=== PATIENT | male | born 2005 | race Caucasian/White ===

== ENCOUNTER 2024-05-28 21:19 | Inpatient (IN) ==
--- NOTE | 2024-05-28 23:04 | Ultrasound Report ---
Exam(s): US SCROTAL EXAM: US Scrotum CLINICAL HISTORY: Reason for exam: Testicle pain. TECHNIQUE: Real-time ultrasound of the scrotum with color Doppler and image documentation. COMPARISON: No relevant prior studies available. FINDINGS: Right testicle: The right testicle measured 4.3 x 2.4 x 2.4 cm.. There appears to be diminished flow within the right testicle. Left testicle: The left testicle measured 5.3 x 3.3 x 2.3 cm. It demonstrated vascular flow. Epididymides: Unremarkable. Scrotum: There is a very large right hydrocele. There is a complex lesion noted superior to the right testicle. IMPRESSION: There is a very large right hydrocele. There is a complex lesion superior to the right testicle which may represent a hernia. There is diminished flow in the right testicle. Cannot exclude an element of torsion. Communications: Call Doctor Torsion, ovarian or testicular Electronically signed by: Dutch Campoverde MD 05/28/24 23:03 PM
--- NOTE | 2024-05-28 23:44 | Emergency Department Note ---
History of Present Illness General Chief complaint: Testicular Pain Stated complaint: TESTICULAR PAIN RT SIDE, ABD PAIN Time Seen by Provider: 05/28/24 22:54 History of Present Illness Maximum Pain Intensity: 4 This is a 18-year-old male presenting to the emergency department through triage for evaluation of right testicle pain for the past 1 day. Patient states his pain has been waxing and waning, and was more severe yesterday. He currently is rated a 4/10. He has been able to urinate, but has not had a bowel movement. Patient is usually healthy without chronic medical disease. 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 No injury or trauma. No urethral drainage or discharge, and no concern for STD. Home Medications Medication Instructions Recorded Confirmed Type oxycodone 5 mg tablet 5 - 10 mg (1 - 2 x 5 mg) PO 05/29/24 Rx .[id number] PRN pain #15 tabs Allergies Allergy/AdvReac Type Severity Reaction Status Date / Time No Known Allergies Allergy Unverified 05/29/24 02:58 Past Med/Surg History Problem List (Updated 05/29/24 @ 16:22 by Mathew Costa PA-C) S/P inguinal hernia repair Inguinal hernia (Acute) Small bowel obstruction (Acute) Testicular pain (Acute) Medical History No chronic diseases present Surgical History No significant past surgical history Social History Smoking Status: Never smoker Hx Alcohol Use: No Hx Substance Use: No Preferred Language: Estonian Communication Ability: Effective Health Science Specialist Required: No Beliefs That Will Affect Care: None Current Living Situation: Family Other Information That Helps Us Care for You: No Feels Safe at Home: Yes Safety Concerns: Feels Safe At This Time Review of Systems A total of 10 systems reviewed and were otherwise negative Physical Exam Vital Signs Vital Signs - 24 hr 05/28/24 21:28 05/28/24 23:33 05/29/24 01:13 Temperature 36.6 C Temperature Source Temporal Artery Scan Pulse Rate 111 H Pulse Rate [Apical] 90 74 Pulse Rhythm [Apical] Regular Respiratory Rate 18 16 16 Respiratory Effort / Characteristics Non-Labored Spontaneous Non-Labored Spontaneous Non-Labored Spontaneous Respiratory Depth Normal Normal Normal Respiratory Pattern Regular Regular Regular Blood Pressure 167/88 H Blood Pressure [Right Arm] 162/94 H 136/77 Blood Pressure Mean 114 Blood Pressure Mean [Right Arm] 116 96 Blood Pressure Position Sitting Blood Pressure Position [Right Arm] Lying Semi-fowlers Pulse Oximetry 94 97 94 Oxygen Delivery Method Room Air Room Air Room Air Sepsis Recent Fever Within 48 Hours No Sepsis New/Unexplained Change in Mental Status N/A Sepsis Action Taken by Nursing No Action Required 05/29/24 03:05 Temperature Temperature Source Pulse Rate Pulse Rate [Apical] 70 Pulse Rhythm [Apical] Respiratory Rate 16 Respiratory Effort / Characteristics Non-Labored Spontaneous Respiratory Depth Normal Respiratory Pattern Regular Blood Pressure Blood Pressure [Right Arm] 152/91 H Blood Pressure Mean Blood Pressure Mean [Right Arm] 111 Blood Pressure Position Blood Pressure Position [Right Arm] Pulse Oximetry 95 Oxygen Delivery Method Room Air Sepsis Recent Fever Within 48 Hours Sepsis New/Unexplained Change in Mental Status Sepsis Action Taken by Nursing VITALS: Vitals are noted on the nurse's note and reviewed by myself. Vital signs stable. GENERAL: Well-developed, well-nourished, white male, who moderately uncomfortable appearing but overall pleasant HEAD: Normocephalic atraumatic. EARS: External ear normal. External auditory canals clear, tympanic membranes pearly soni without erythema or effusion bilaterally. HEART: Regular rate and rhythm without murmurs gallops or rubs. LUNGS: Clear to auscultation bilaterally without wheezes, rales or rhonchi. No retractions or accessory muscle use. ABDOMEN: Positive normal bowel sounds x 4. Soft, nontender, without masses or organomegaly. No guarding or rebound tenderness. : Notable right-sided hernia on exam. Right scrotal sac is enlarged when compared to the left side. Testicle is tender on the right essentially inferior and posteriorly. No urethral drainage or discharge. MUSCULOSKELETAL: No muscle atrophy, erythema, or edema noted. Full range of motion in all extremities. Course Administered Medications Discontinued Medications Bupivacaine HCl/Epinephrine Bitart (Bupivacaine/Epinephrine 0.25% 1:200,000 30 Ml Vial) Confirm Administered Dose 30 ml .ROUTE .Qonf-Asl Analytical ONE Stop: 05/29/24 03:33 Last Admin: 05/29/24 05:08 Dose: 30 ml Documented By: [id number] Sodium Chloride (Nss) 1,000 mls @ 999 mls/hr IV .Q1H1M ONE Stop: 05/29/24 00:38 Last Infusion: 05/29/24 00:50 Dose: Infused Documented By: Admin: 05/28/24 23:49 Dose: 999 mls/hr Documented By: ALLEY Piperacillin Sod/Tazobactam Sod (Zosyn) 4.5 gm in 100 mls @ 200 mls/hr IV NOW ONE; Protocol Stop: 05/29/24 03:24 Last Infusion: 05/29/24 07:12 Dose: Infused Documented By: Admin: 05/29/24 03:01 Dose: 200 mls/hr Documented By: ALLEY Sodium Chloride (Nss) 1,000 mls @ 125 mls/hr IV .Q8H KEILY Stop: 05/30/24 02:59 Last Admin: 05/29/24 11:38 Dose: Not Given Documented By: Infusion: 05/29/24 11:37 Dose: Infused Documented By: Admin: 05/29/24 03:01 Dose: 125 mls/hr Documented By: ALLEY Ioversol (Optiray 320 100ml) 100 ml IV ONCE ONE Stop: 05/29/24 01:47 Last Admin: 05/29/24 01:47 Dose: 93 ml Documented By: CORINA Morphine Sulfate (Morphine Sulfate 2 Mg/Ml Carp) 2 mg IV Q30M PRN PRN Reason: Pain Stop: 06/11/24 23:34 Last Admin: 05/28/24 23:49 Dose: 2 mg Documented By: ALLEY Ondansetron HCl (Ondansetron Inj 2 Mg/Ml 2 Ml Vial) 4 mg IV NOW STA Stop: 05/28/24 23:36 Last Admin: 05/28/24 23:49 Dose: 4 mg Documented By: ALLEY Oxycodone HCl (Oxycodone Hcl Ir 5 Mg Tab (Immediate Release)) 5 mg PO Q4H PRN PRN Reason: Moderate Pain (Scale 4, 5, 6) Stop: 06/12/24 11:22 Last Admin: 05/29/24 12:30 Dose: 5 mg Documented By: MARKY Piperacillin Sod/Tazobactam Sod (Piperacillin/Tazo 4.5 Gm/100ml) Confirm Administered Dose 4.5 gm IV .[place] ONE Stop: 05/29/24 03:00 Last Admin: 05/29/24 03:01 Dose: Not Given Documented By: ALLEY Medical Decision Making Differential Diagnosis Differential diagnosis: Etiologies such as shingles, pyelonephritis/UTI, renal colic, appendicitis, diverticulitis, mesenteric ischemia, torsion, aortic pathology, infections, inflammatory bowel disease, bowel obstruction, PUD, biliary pathology, as well as others were entertained. Laboratory Data 05/29/24 06:58 05/29/24 06:58 Lab Results 05/28/24 05/29/24 05/29/24 Range/Units 23:42 00:43 03:11 WBC 19.83 H (4.8-10.8) K/ul RBC 5.89 (4.70-6.10) M/uL Hgb 17.3 (14.0-18.0) g/dl Hct 47.4 (42.0-52.0) % MCV 80.5 (80.0-100.0) fL MCH 29.4 (25.0-34.0) pg MCHC 36.5 H (32.0-36.0) g/dL RDW Std Deviation 34.5 L (36.4-46.3) fL RDW Coeff of [place] 11.9 (11.5-14.5) % Plt Count 384 (130-400) K/uL MPV 9.7 (9.4-12.4) fL Immature Gran % (Auto) 0.5 % Neut % (Auto) 85.4 % Lymph % (Auto) 7.6 % [place] % (Auto) 6.1 % Eos % (Auto) 0.2 % Baso % (Auto) 0.2 % Neut # (Auto) 16.96 H (1.40-6.50) K/uL Lymph # (Auto) 1.50 (1.20-3.40) K/uL [place] # (Auto) 1.21 H (0.11-0.59) K/uL Eos # (Auto) 0.03 (0.00-0.50) K/uL Baso # (Auto) 0.04 (0.00-0.20) K/uL Immature Gran # (Auto) 0.09 (0.01-0.20) K/uL PT 11.3 (9.0-12.0) Seconds INR 1.0 (0.9-1.1) APTT 30 (21-31) Seconds PTT Ratio 1.1 Sodium 134 L (136-145) mmol/L Potassium 4.4 (3.5-5.1) mmol/L Chloride 94 L (98-107) mmol/L Carbon Dioxide 26 (21-32) mmol/L Anion Gap 14 H (3-11) BUN 17 (6-23) mg/dl Creatinine 0.96 (0.6-1.4) mg/dl Est Cr Clr Drug Dosing 113.2 ml/min eGFR 116.77 BUN/Creatinine Ratio 17.7 (10-20) Glucose 111 H (70-99(Fasting)) mg/dl Lactate 1.0 (0.4-2.0) mmol/L Calcium 10.3 (8.6-10.3) mg/dl Total Bilirubin 0.6 (0.2-1.0) mg/dl AST 21 (13-39) U/L ALT 24 (7-52) U/L Alkaline Phosphatase 73 (34-104) U/L Total Protein 8.0 (6.0-8.3) gm/dl Albumin 5.0 (3.4-5.0) gm/dl Globulin 3.0 (2.5-4.0) gm/dl Albumin/Globulin Ratio 1.7 (0.9-2) Urine Color Yellow Urine Appearance Clear (Clear) Urine pH 6.0 (4.5-7.5) Ur Specific [place] > 1.045 H (1.000-1.030) Urine Protein Trace H (Negative) Urine Glucose (UA) Negative (Negative) Urine Ketones 2+ H (Negative) Urine Blood Negative (Negative) Urine Nitrite Negative (Negative) Urine Bilirubin Negative (Negative) Urine Urobilinogen Negative (Negative) Ur Leukocyte Esterase Negative (Negative) Urine WBC (Auto) 0-5 (0-5) /hpf Urine RBC (Auto) 0-2 (0-2) /hpf U Hyaline Cast (Auto) 0-2 (0-2) /lpf U Epithel Cells (Auto) 0-2 (0-2) /hpf Urine Bacteria (Auto) None Seen (None Seen) Imaging Data Radiologist's Impression: Scrotum Ultrasound 05/28/24 21:33 CR Exam(s): US SCROTAL EXAM: US Scrotum CLINICAL HISTORY: Reason for exam: Testicle pain. TECHNIQUE: Real-time ultrasound of the scrotum with color Doppler and image documentation. COMPARISON: No relevant prior studies available. FINDINGS: Right testicle: The right testicle measured 4.3 x 2.4 x 2.4 cm.. There appears to be diminished flow within the right testicle. Left testicle: The left testicle measured 5.3 x 3.3 x 2.3 cm. It demonstrated vascular flow. Epididymides: Unremarkable. Scrotum: There is a very large right hydrocele. There is a complex lesion noted superior to the right testicle. IMPRESSION: There is a very large right hydrocele. There is a complex lesion superior to the right testicle which may represent a hernia. There is diminished flow in the right testicle. Cannot exclude an element of torsion. Communications: Call Doctor Torsion, ovarian or testicular Electronically signed by: Dutch Campoverde MD 05/28/24 23:03 PM [facility] Narrative Physical exam and history were performed. Nursing notes, EMR, and Medication List were personally reviewed. No social concerns were identified as barriers to patients care. Patient appears to have pain in his right testicle bringing him to the ER. Symptoms began yesterday and have had some colic to them. Patient was seen during a period of very high ER volume and acuity with extended wait times. Nursing protocol order have been performed and some of these are available for my review at the time of patient encounter. Ultrasound was performed and reviewed by myself and radiology. Ultrasound does show the hernia, which was expected. Patient also appears to have a large right hydrocele. There is also is diminished flow to the right testicle, and torsion is certainly within the differential. Case was discussed with the on-call urology team, and the patient was evaluated at bedside by Saul Ramirez PA-C. Urology, Dr. Gaytan, was able to review images remotely, and feels that the diminished flow is likely from the large right-sided hernia, and not from torsion. Acute urologic surgical intervention is not felt to be necessary. On reevaluation additional history was gathered. Patient has not had a bowel movement in a few days, and is not passing gas. He has not eaten anything in about 36 hours due to the level of nausea. Certainly bowel containing hernia is within the differential, and Saul Ramirez did attempt bedside reduction of the hernia without success. Because of this IV access was established and labs were obtained. Patient was hydrated normal saline and given IV morphine and IV Zofran for comfort. He was sent to CT scan for imaging of his abdomen and pelvis with IV and oral contrast. Patient remained in stable condition until the time of shift change. Case was discussed with my colleague, ANTOINETTE Collins, who will assume care at this time pending CT results. Please see Mr. Zapien's dictation for results, plan, and disposition. The chart was completed utilizing [employer] Speech Voice Recognition Software. Grammatical errors, random word insertions, pronoun errors, and incomplete sentences are an occasional consequence of this system due to software limitations, ambient noise, and hardware issues. Any formal questions or concerns about the content, text, or information contained within the body of this dictation should be directly addressed to the provider for clarification. Impression & Plan Inguinal hernia, Testicular pain, Small bowel obstruction Discharge Plan Visit Data Chief Complaint: Testicular Pain Stated Complaint: TESTICULAR PAIN RT SIDE, ABD PAIN ED Provider: Angela Rae ED Midlevel Provider: Whitney Zapien Discharge Problem: Inguinal hernia, Testicular pain, Small bowel obstruction Patient Disposition: Admitted As Inpatient Discharge Instructions Interventions: ED Discharge Assessment Last Done: 05/29/24 03:18
--- NOTE | 2024-05-28 23:48 | Urology Consultation ---
Date of Consultation May 28, 2024 Assessment & Plan (1) Testicular pain: I evaluated the patient in room D4 in the emergency department. I was asked to see the patient at approximately 11:07 PM I reported the bedside within 5 minutes. I reviewed the ultrasound and clinical presentation with my attending physician, Dr. Gaytan of [facility] physician group urology Although the patient may have some diminished flow to the right testicle the findings on ultrasound as well as the patient's clinical presentation did not appear consistent with testicular torsion Patient is noted to have findings consistent with a right inguinal hernia. If the patient has a significant size hernia this could compress the cord like structures in the scrotum resulting in the diminished blood flow seen on ultrasound. No acute urologic intervention is warranted at this time I did discuss the above with the treating clinician the emergency department, and due to the right inguinal hernia the patient has plans are in place for the patient undergo a CT scan of the abdomen pelvis for further evaluation. Additional recommendations will be forthcoming based on his pending studies, and if it is felt intervention is required for patient's inguinal hernia this will be referred to general surgery. History of Present Illness Reason for Consultation: Testicular pain History of Present Illness This is a 18-year-old male who presented to the emergency department secondary to right testicular pain. Patient says that the pain began the morning of 05/27/2024. Patient says that the pain is primarily in his right testicle but he also reports some pain in his lower abdomen. He does state that he had a significant bout of nausea and vomiting when the pain began. He says he did not take his temperature but he felt feverish. Patient notes that he has not had a bowel movement in approximately 2-1/2 days (he does note that he usually moves his bowels daily basis) and he has not been passing any flatus since his symptoms began. He denies any difficulty urinating. 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 Since arrival to the emergency department the patient had a testicular ultrasound performed. The interpreting radiologist noted that there was a very large right hydrocele and a complex lesion superior to the right testicle potentially representing a hernia. They noted that the patient had diminished blood flow to the right testicle Concerning past medical history he denies any medical problems Concerning past surgical history he denies any surgical problems Concerning social history does not smoke Concerning family history he does not have any chronic health conditions around his family Patient History Medical History No chronic diseases present Surgical History No significant past surgical history Social History Smoking Status: Never smoker Feels Safe at Home: Yes Review of Systems Review of Systems: All systems reviewed & are unremarkable except as noted in HPI & below Physical Exam Constitutional: WD/WN, vitals as above Eyes: no conjunctival abnormality ENMT: Ears: no hearing impairment and no external ear abnormality Mouth: no oropharynx abnormality Neck: trachea midline Respiratory: normal respiratory effort; no respiratory distress and no labored breathing Cardiovascular: Rate/Rhythm: regular rate and regular rhythm Gastrointestinal (Abdomen): Abdomen is soft and nondistended. Patient did have some slight tenderness to palpation in the lower abdomen without rebound tenderness or guarding. Patient had a palpable masslike structure in the right groin consistent with a inguinal hernia. I was unable to reduce this mass. There is no overlying skin changes. Musculoskeletal: No gross orthopedic abnormalities in the extremities Skin: no rashes Neurologic: moves all extremities Psychiatric: Orientation: alert and oriented x 3 Affect: + flat affect Genitourinary: With a nurse corrections caseworker present I examined the patient's genitals. Patient had a noncircumcised penis without any noted abnormalities. Patient's left testes was nontender to palpation. I also do not appreciate any masses on the left testicle. The patient's right testicle/hemiscrotum appear to be swollen compared to the left. There is slightly painful to palpation. As noted in the abdominal portion of this exam I was able to appreciate findings consistent with an inguinal hernia I was unable to reduce this. Results & Data Vital Signs (Past 12 Hours) Vital Signs Temp Pulse Pulse Resp BP BP Pulse Ox 05/28/24 23:33 90 16 162/94 H 97 05/28/24 21:28 36.6 C 111 H 18 167/88 H 94 O2 Del Method 05/28/24 23:33 Room Air 05/28/24 21:28 Room Air PG Care Time/CCT Total # of Minutes Spent Total Time Spent with Patient: Total time spent is greater than 50% in coordination of care (as documented) at patient's floor/unit and/or counseling patient: Coding Level of Care Code 11435 OFFICE CONSULT LVL Diagnoses Testicular pain N50.819
[2024-05-28] MEDS: MoRPHine SULFATE 2 MG/ML CARP IV PRN (23:49)
[2024-05-28] MEDS: SODIUM CHLORIDE 0.9% 1,000 ML IV ONE (23:49)
[2024-05-28] MEDS: ONDANSETRON INJ 2 MG/ML 2 ML VIAL IV STA (23:49)
[2024-05-29] LABS: Basophils # (auto) 0.04 K/uL (0.00-0.20); Basophils % (auto) 0.2 %; Eosinophils # (auto) 0.03 K/uL (0.00-0.50); Eosinophils % (auto) 0.2 %; Hematocrit (blood only) 47.4 % (42.0-52.0); Hemoglobin 17.3 g/dl (14.0-18.0); Immature Granulocytes # (auto) 0.09 K/uL (0.01-0.20); Immature Granulocytes % (auto) 0.5 %; Lymphocytes % (auto) 7.6 %; Mean Corpuscular Hemoglobin 29.4 pg (25.0-34.0); Mean Corpuscular Hgb Conc 36.5 g/dL (32.0-36.0); Mean Corpuscular Volume 80.5 fL (80.0-100.0); Mean Platelet Volume 9.7 fL (9.4-12.4); Monocytes # (auto) 1.21 K/uL (0.11-0.59); Monocytes % (auto) 6.1 %; Neutrophils # (auto) 16.96 K/uL (1.40-6.50); Neutrophils % (auto) 85.4 %; Platelet Count 384 K/uL (130-400); RDW Coefficient of Variation 11.9 % (11.5-14.5); RDW Standard Deviation 34.5 fL (36.4-46.3); Red Blood Count 5.89 M/uL (4.70-6.10); White Blood Count 19.83 K/ul (4.8-10.8)
[2024-05-29 00:14] LABS: Albumin Globulin Ratio 1.7 (0.9-2); BUN Creatinine Ratio 17.7 (10-20); Bilirubin,Total 0.6 mg/dl (0.2-1.0); Calcium 10.3 mg/dl (8.6-10.3); Creatinine Clr Calc Pharmacy 113.2 ml/min; Potassium 4.4 mmol/L (3.5-5.1)
[2024-05-29] MEDS: OPTIRAY 320 100ml IV ONE (01:47)
--- NOTE | 2024-05-29 02:37 | CT Scan Report ---
EXAM: CT abd pelvis oral and IV con CLINICAL HISTORY: low abd pain, R inguinal hernia TECHNIQUE: Contiguous axial images were obtained from the level of the diaphragm to the pubic symphysis without and with intravenous contrast. Coronal and sagittal reconstructions were likewise performed and indicated to increase the sensitivity for detecting clinically relevant pathology. If IV contrast material had not been administered, the likelihood of detecting abnormalities relevant to the patient's condition would have been substantially decreased. CT scan was performed according to ALARA (as low as reasonable achievable). COMPARISON: None. FINDINGS: The visualized lung bases are clear. The liver is normal in size and attenuation. No focal liver lesions are seen. There is no intra or extrahepatic biliary ductal dilatation. Hepatic vasculature is patent. The gallbladder is present. The spleen, pancreas, and adrenal glands are unremarkable. The kidneys are normal in size and attenuation. There is no hydronephrosis or perinephric fat stranding. No renal calculi or renal masses are identified. The ureters are normal in caliber and no ureteral calculi are seen. The bladder is normal in contour. Pelvic viscera are unremarkable. Mild dilatation of distal jejunal and ileal loops( maximum diameter measures approx 4.2 cm) is noted involving mid and lower quadrant due to narrowing of ileal loop due to herniation into the right inguinal region Moderate edema is noted involving herniated bowel loops. Moderate to gross right sided hydrocele Mild ascites is noted involving lower abdomen and pelvis. Abdominal and pelvic vasculature is patent. No adenopathy are seen. No aggressive appearing osseous lesions are identified. IMPRESSION: 1. Small intestinal obstruction due to an incarcerated hernia at right inguinal region. 2. Moderate to gross right sided hydrocele 3. Mild ascites is noted involving lower abdomen and pelvis. Electronically signed by Jay Hankins 05-29-2024 02:37 AM
--- NOTE | 2024-05-29 02:46 | Emergency Department Note ---
ED Visit Note The patient was signed out to me at change of shift from Mathew Costa PA-C, pending CT imaging results. CT imaging results does show bowel obstruction, which will require surgical intervention. Saul Ramirez PA-C from general surgery was able to evaluate the patient, and agreed to accept the patient for admission along with Dr. Michaud. Please refer to their documentation for further patient workup and care. .
[2024-05-29] MEDS: PIPERACILLIN/TAZO 4.5 GM/D5W 100ML IV ONE (03:01)
[2024-05-29] MEDS: SODIUM CHLORIDE 0.9% 1,000 ML IV SCH (03:01)
[2024-05-29] MEDS: PIPERACILLIN/TAZOBACTAM 4.5 GM/100 ML BAG IV ONE (03:01)
--- NOTE | 2024-05-29 03:03 | History & Physical Report ---
Date of Service May 29, 2024 Assessment & Plan (1) Small bowel obstruction: Plan: Due to the findings on imaging and the patient's clinical presentation he is being admitted to the surgical service proceeding as follows: The results of patient's CT scan were available at approximately 2:30 AM on 05/29/2024. I reported to the patient's bedside within 5 minutes of the studies being available. N.p.o. status will be implemented He will receive antibiotics in form of Zosyn Will hydrate with IV fluids Analgesics will be providedantiemetics to be provided Due to the findings on CAT scan we are planning on urgent surgical intervention with Dr. Christopher Michaud of [facility] physician [facility] general surgery Additional findings will be forthcoming based on operative findings and his postoperative recovery thereafter (2) Inguinal hernia: History of Present Illness Chief Complaint: Right groin pain Primary Care Provider: NO PCP This is a 18-year-old male who presented to the emergency department secondary to right testicular pain that began the morning of 05/27/2024. The pain was reportedly primarily in his right testicle but the patient did report some lower abdominal pain. When the pain began he had significant nausea and vomiting and he also felt fevers. He notes that his bowels is not moving approximately 2 and half days and he has not been passing any flatus since his symptoms began. He denies any difficulty with urinating. Initially there is concern the patient may have had a testicular torsion as a testicular ultrasound showed a large right hydrocele as well as some decreased blood flow to the right testicle. The ultrasound was reviewed with attending urologist and was felt that due to the presence of a hernia that this was the primary problem. Due to the symptomatology the patient was experiencingnausea and vomiting, inability to pass flatus or move bowels was felt that a CT scan of the abdomen pelvis was warranted. CT scan of the abdomen pelvis was performed. This showed the patient had a small intestinal obstruction due to incarcerated right inguinal hernia. Patient was also noted to have a right sided hydrocele and some mild ascites in the lower abdomen/pelvis. Labs included CBC white blood cell count was elevated 19.8. Hemoglobin and hematocrit as well as a platelet count were normal. Chemistry profile showed sodium was 134 with a potassium of 4.4. BUN and creatinine were both within normal range. LFTs were not elevated and a lactic acid level is normal. The patient denies any medical problems The patient denies any previous surgical procedures The patient notes he does not smoke Concerning family history there are no chronic health conditions that run in his family. Allergies Allergy/AdvReac Type Severity Reaction Status Date / Time No Known Allergies Allergy Unverified 05/29/24 02:58 Home Medications Medication Instructions Recorded Confirmed Type No Known Home Medications 05/29/24 05/29/24 History Past Med/Surg History Problem List Inguinal hernia Small bowel obstruction Testicular pain Medical History No chronic diseases present Surgical History No significant past surgical history Social History Smoking Status: Never smoker Feels Safe at Home: Yes Review of Systems Review of Systems: All systems reviewed & are unremarkable except as noted in HPI & below Physical Exam Constitutional: WD/WN, vitals as above Eyes: no conjunctival abnormality ENMT: Ears: no hearing impairment and no external ear abnormality Mouth: no oropharynx abnormality Neck: trachea midline Respiratory: normal respiratory effort; no respiratory distress and no labored breathing Cardiovascular: Rate/Rhythm: regular rate and regular rhythm Gastrointestinal (Abdomen): Abdomen is soft and nondistended. There is some tenderness to palpation of the lower abdomen. Musculoskeletal: No calf tenderness Skin: no rashes Neurologic: moves all extremities Psychiatric: A+Ox3, euthymic affect Genitourinary: With a nurse long term care administrator present the patient was examined. The right testicle/hemiscrotum appear to be swollen compared to left. There are findings consistent with an inguinal hernia that was not reducible without any overlying skin changes Results & Data Results & Data Vital Signs (Past 12 Hours) Vital Signs Temp Pulse Pulse Resp BP BP Pulse Ox 05/29/24 01:13 74 16 136/77 94 05/28/24 23:33 90 16 162/94 H 97 05/28/24 21:28 36.6 C 111 H 18 167/88 H 94 O2 Del Method 05/29/24 01:13 Room Air 05/28/24 23:33 Room Air 05/28/24 21:28 Room Air Supervising Physician Co-Signing Physician Notes 18 yo male with incarcerated right inguinal hernia causing small bowel obstruction CT images and results were personally viewed and interpreted by myself Has a loop of small bowel causing a small bowel obstruction Will plan on urgent open incarcerated right inguinal hernia repair, possible mesh Consent was obtained, risks discussed including, bleeding, infection, recurrence, mesh infection requiring explantation, seroma/hematoma PG Care Time/CCT Total # of Minutes Spent Total Time Spent with Patient: Total time spent is greater than 50% in coordination of care (as documented) at patient's floor/unit and/or counseling patient: Coding Level of Care Code 61537 INT INP/OBS CARE MIN Diagnoses Small bowel obstruction K56.609 Inguinal hernia K40.90
[2024-05-29] MEDS ORDERED: ACETAMINOPHEN 1,000 MG/100 ML VIAL IV PRN (03:04)
[2024-05-29] MEDS ORDERED: MoRPHine SULFATE 4 MG/ML 1 ML CARP\\VIAL IV PRN (03:04)
[2024-05-29] MEDS ORDERED: ONDANSETRON INJ 2 MG/ML 2 ML VIAL IV PRN (03:04)
--- NOTE | 2024-05-29 03:05 | Anesthesiology Consultation ---
Date of Service May 29, 2024 Assessment & Plan Chart Review Chart Review: Acceptable Risk for Surgery and Patient NOT seen in Pre Admission Testing Consults Requested none History Height/Weight Height: 5 ft 4 in Weight: 72.9 kg Allergies Allergy/AdvReac Type Severity Reaction Status Date / Time No Known Allergies Allergy Unverified 05/29/24 02:58 Medications Home Medications Medication Instructions Recorded Confirmed Last Taken No Known Home Medications 05/29/24 05/29/24 Unknown Active Medications Generic Name Dose Route Start Last Admin Trade Name Freq PRN Reason Stop Dose Admin Piperacillin Sod/Tazobactam Sod 4.5 gm in 100 mls @ 200 mls/hr 05/29/24 02:55 05/29/24 03:01 Zosyn IV 05/29/24 03:24 200 mls/hr NOW ONE Administration Protocol Sodium Chloride 1,000 mls @ 125 mls/hr 05/29/24 03:00 05/29/24 03:01 Nss IV 05/30/24 02:59 125 mls/hr .Q8H KEILY Administration Past Medical History Medical History No chronic diseases present Past Surgical History Surgical History No significant past surgical history Social History Smoking Status: Never smoker Physical Exam Vital Signs Last Vital Signs Temp 36.6 C 05/28/24 21:28 Pulse 74 05/29/24 01:13 Resp 16 05/29/24 01:13 BP 136/77 05/29/24 01:13 Pulse Ox 94 05/29/24 01:13 O2 Del Method Room Air 05/29/24 01:13 Testing Laboratory Results 05/28/24 23:42 05/28/24 23:42
[2024-05-29] MEDS ORDERED: MIDAZOLAM HCL 1 MG/ML 2ML VIAL ONE (03:08)
[2024-05-29] MEDS ORDERED: fentaNYL citrate PF 100 MCG/2 ML VIAL ONE ×2 (03:08→04:41)
[2024-05-29] MEDS ORDERED: PROPOFOL IV EMULSION 10 MG/ML 20 ML VIAL IV ONE (03:10)
[2024-05-29] MEDS ORDERED: LIDOCAINE 2% 2 ML VIAL/AMP(20MG/ML) INFIL ONE ×3 (03:10→03:44)
[2024-05-29] MEDS ORDERED: SUCCINYLCHOLINE CHLORIDE 20 MG/ML 10 ML VIAL IV ONE (03:12)
[2024-05-29] MEDS ORDERED: ROCURONIUM BROMIDE 10 MG/ML 5 ML VIAL IV ONE ×2 (03:12→04:44)
[2024-05-29] MEDS ORDERED: ARTIFICIAL TEARS OP OINT 3.5 GM TUBE ONE (03:16)
[2024-05-29] MEDS ORDERED: ePHEDrine sulfate 50 MG/ML AMP IV PRN (03:34)
[2024-05-29] MEDS ORDERED: DROPERIDOL 5 MG/2 ML VIAL IV PRN (03:34)
[2024-05-29] MEDS ORDERED: fentaNYL citrate PF 100 MCG/2 ML VIAL IV PRN (03:34)
[2024-05-29] MEDS ORDERED: ATROPINE SULFATE 0.1 MG/ML 10ML SYR IV PRN (03:34)
[2024-05-29 03:36] LABS: Appearance Urine Clear (Clear); Bacteria Urine Automated None Seen (None Seen); Bilirubin Urine Negative (Negative); Blood Urine Negative (Negative); Cast Urine Automated 0-2 /lpf (0-2); Color Urine Yellow; Epithelial Cell Urine Auto 0-2 /hpf (0-2); Glucose Urine UA Negative (Negative); Ketones Urine 2+ (Negative); Leukocyte Esterase Urine Negative (Negative); Nitrite Urine Negative (Negative); Protein Urine Trace (Negative); RBC Urine Automated 0-2 /hpf (0-2); Specific Gravity Urine > 1.045 (1.000-1.030); Urobilinogen Urine Negative (Negative); WBC Urine Automated 0-5 /hpf (0-5)
[2024-05-29 03:46] LABS: Partial Thromboplastin Ratio 1.1; Partial Thromboplastin Time 30 Seconds (21-31); Prothrombin Time 11.3 Seconds (9.0-12.0)
[2024-05-29] MEDS ORDERED: SUGAMMADEX SODIUM 200 MG/2 ML VIAL IV ONE (05:02)
[2024-05-29] MEDS: BUPIVACAINE/EPINEPHRINE 0.25% 1:200,000 30 ML VIAL ONE (05:08)
--- NOTE | 2024-05-29 05:15 | Post Operative Brief Note ---
PG Immediate Post Op with CF Date of Surgery May 29, 2024 Pre & Post Diagnosis Operation Date: 05/29/24 04:00 Pre-Op Diagnosis: Incarcerated Right Inguinal Hernia Post-Op Diagnosis: Incarcerated Right Inguinal Hernia I identified the patient and participated in the time-out.: Yes Procedure Operation Date: 05/29/24 04:00 Actual Procedures p Open Incarcerated Right Inguinal Hernia Repair with Mesh, Release of Small Bowel Obstruction(Right) - Christopher Michaud DO Surgeon Christopher Michaud DO Header Up Raphael Ramirez PA-C Estimated Blood Loss 10 Findings See Below Incarcerated small bowel within indirect right inguinal hernia Specimens Specimen Description: A: Hernia Sac Anesthesia Type General Complications none Disposition Disposition: Recovery Room
--- NOTE | 2024-05-29 05:20 | Operative Report ---
PG Post Operative Report Pre & Post Diagnosis Operation Date: 05/29/24 04:00 Pre-Op Diagnosis: Incarcerated Right Inguinal Hernia Post-Op Diagnosis: Incarcerated Right Inguinal Hernia I identified the patient and participated in the time-out.: Yes Procedure Operation Date: 05/29/24 04:00 Actual Procedures p Open Incarcerated Right Inguinal Hernia Repair with Mesh, Release of Small Bowel Obstruction(Right) - Christopher Michaud DO Surgeon Christopher Michaud DO Flatbed Driver Raphael Ramirez PA-C Estimated Blood Loss 10 Findings See Below Incarcerated small bowel within a right inguinal hernia Specimens Hernia Sac to pathology Drains None Anesthesia Type General Complications none Disposition Disposition: Recovery Room Indications 18 yo male with incarcerated right inguinal hernia causing a small bowel obstruction Description of Procedure The patient was brought to the operating room and placed in the supine position. At this time he underwent General endotracheal anesthesia without any problems. His right groin was prepped and draped in the usual sterile fashion. He was given appropriate pre-operative antibiotics. A timeout was called. The procedure was verified as Open Incarcerated Right inguinal hernia repair, possible mesh. Surgical, anesthesia and nursing teams agreed and the procedure was begun. Using the traditional landmarks of the ASIS and pubic tubercle, a transverse incision was made over the midportion of the inguinal canal using a #15 blade scalpel after injection of 0.25% Marcaine with epinephrine to anesthetize the skin. The incision was carried down the the external oblique aponeurosis with electrocautery which was cleared off of any tissue. The external oblique aponeurosis was then incised using a #15 blade scalpel and opened inferiomedially through the external inguinal ring with Metzenbaum scissors taking care not to injure the ilioinguinal nerve. It was then opened superiolaterally as well. The posterior aspect of the external oblique was cleared bluntly and the spermatic cord was encircled at the pubic tubercle with a Noe drain. The small bowel was able to be reduced and obstruction released. At this time a large indirect inguinal hernia sac was found after dividing the cremasteric fibers. This was bluntly from the cord structures and easily reduced back into the abdomen. Due to the length of the hernia sac, a high ligation was performed using a 2-0 Vicryl stick tie and specimen passed off as hernia sac. A flat keyhole mesh was then sutured to the pubic tubercle medially, shelving edge of the inguinal ligament inferiorly and the conjoint tendon superiorly using simple interrupted 2-0 PDS. The tails of the mesh were loosely overlapped recreating the internal inguinal ring leaving adequate room for the cord structures to pass. The [place] drain was removed. The incision was irrigated until clear. Hemostasis was achieved using electrocautery. Hemostasis was complete. At this time the external oblique aponeurosis was closed using a running 2-0 Vicryl taking care not to injure any structures beneath. Elijah's fascia was closed using interrupted 3-0 Vicryl and the skin was closed using 4-0 Monocryl in a running subcuticular fashion. Needle and sponge counts were correct x 2. Steri-strips and dressing were a pplied. Gentle traction was placed on the testicle to ensure its location in the scrotum. The patient was then awakened from anesthesia having remained stable throughout the entire case and transported to PACU in stable condition. The physician assistant account executive was present and scrubbed for the entire procedure. He was essential in positioning, prepping and draping the patient, retraction and exposure, closure of the incision and placement of the dressing. I attest to the content of the Intraoperative Record and any orders documented therein. Any exceptions are noted below.
--- NOTE | 2024-05-29 05:57 | Anesthesiology Progress Note ---
Date of Service May 29, 2024 Anesthesia Post Procedure Vital Signs Vital Signs: Temp Pulse Pulse Resp BP BP Pulse Ox 05/29/24 05:44 37.2 C 87 16 147/81 H 93 05/29/24 05:34 37.0 C 82 18 148/79 H 96 05/29/24 03:05 70 16 152/91 H 95 05/29/24 01:13 74 16 136/77 94 05/28/24 23:33 90 16 162/94 H 97 05/28/24 21:28 36.6 C 111 H 18 167/88 H 94 O2 Del Method O2 Flow Rate 05/29/24 05:44 Room Air 05/29/24 05:34 Oxymask 4 05/29/24 03:05 Room Air 05/29/24 01:13 Room Air 05/28/24 23:33 Room Air 05/28/24 21:28 Room Air Pain Intensity Right Abdomen: Pain Intensity: 8 Transfer of Care Handoff Completed per policy Notes Mental Status: alert / awake / arousable Patient Amnestic to Procedure: Yes Nausea / Vomiting: adequately controlled Pain: adequately controlled Airway Patency, RR, SpO2: stable & adequate BP & HR: stable & adequate Hydration State: stable & adequate Anesthetic Complications: no major complications apparent and Pt Satisfied with anesthetic care
[2024-05-29 07:21] LABS: Basophils # (auto) 0.04 K/uL (0.00-0.20); Basophils % (auto) 0.3 %; Eosinophils # (auto) 0.01 K/uL (0.00-0.50); Eosinophils % (auto) 0.1 %; Hematocrit (blood only) 42.1 % (42.0-52.0); Hemoglobin 14.8 g/dl (14.0-18.0); Immature Granulocytes # (auto) 0.06 K/uL (0.01-0.20); Immature Granulocytes % (auto) 0.4 %; Lymphocytes # (auto) 1.62 K/uL (1.20-3.40); Mean Corpuscular Hemoglobin 28.9 pg (25.0-34.0); Mean Corpuscular Hgb Conc 35.2 g/dL (32.0-36.0); Mean Corpuscular Volume 82.2 fL (80.0-100.0); Mean Platelet Volume 9.7 fL (9.4-12.4); Monocytes # (auto) 1.36 K/uL (0.11-0.59); Monocytes % (auto) 9.2 %; Neutrophils # (auto) 11.68 K/uL (1.40-6.50); Platelet Count 342 K/uL (130-400); RDW Coefficient of Variation 11.9 % (11.5-14.5); RDW Standard Deviation 36.2 fL (36.4-46.3); Red Blood Count 5.12 M/uL (4.70-6.10); White Blood Count 14.77 K/ul (4.8-10.8)
[2024-05-29 07:35] LABS: Calcium 8.8 mg/dl (8.6-10.3); Creatinine Clr Calc Pharmacy 102.5 ml/min; Potassium 4.4 mmol/L (3.5-5.1)
[2024-05-29] MEDS ORDERED: oxyCODONE HCL IR 5 MG TAB (IMMEDIATE RELEASE) PO PRN (11:23)
[2024-05-29] MEDS ORDERED: ACETAMINOPHEN 325 MG TAB PO PRN (11:23)
--- NOTE | 2024-05-29 11:23 | Surgery Progress Note ---
Date of Service May 29, 2024 Assessment & Plan (1) S/P inguinal hernia repair: Plan: Advance diet as tolerated If tolerates lunch and pain controlled, plan for d/c later this afternoon Admission and Anticipated Discharge Date Admission Date: May 29, 2024 Subjective Pt seen and examined. Tolerating clears. Pain controlled. Has not urinated yet since surgery. Physical Exam Constitutional: WD/WN, vitals as above Gastrointestinal (Abdomen): Right groin incision intact Results & Data Vital Signs (Past 12 Hours) Vital Signs Temp Pulse Pulse Resp BP Pulse Ox O2 Del Method 05/29/24 06:58 36.8 C 73 16 148/71 H 93 Room Air 05/29/24 06:35 36.8 C 83 16 148/73 H 96 Room Air 05/29/24 05:54 37.3 C 82 18 142/69 H 97 Nasal Cannula 05/29/24 05:44 37.2 C 87 16 147/81 H 93 Room Air 05/29/24 05:34 37.0 C 82 18 148/79 H 96 Oxymask 05/29/24 03:05 70 16 152/91 H 95 Room Air 05/29/24 01:13 74 16 136/77 94 Room Air 05/28/24 23:33 90 16 162/94 H 97 Room Air O2 Flow Rate 05/29/24 06:58 05/29/24 06:35 05/29/24 05:54 2 05/29/24 05:44 05/29/24 05:34 4 05/29/24 03:05 05/29/24 01:13 05/28/24 23:33 PG Care Time/CCT Total # of Minutes Spent Total Time Spent with Patient: Total time spent is greater than 50% in coordination of care (as documented) at patient's floor/unit and/or counseling patient: Coding Level of Care Code 30218 Post Operative Follow-Up Diagnoses S/P inguinal hernia repair Z98.890; Z87.19
[2024-05-29] MEDS: oxyCODONE HCL IR 5 MG TAB (IMMEDIATE RELEASE) PO PRN (12:30)
[2024-05-29 12:40] VITALS: BP 153/66; PULSE 64; RESP 18; TEMP 99; O2SAT 92
--- NOTE | 2024-05-29 15:35 | Discharge Summary ---
Date of Service May 29, 2024 Admission HPI Per Admitting Provider This is a 18-year-old male who presented to the emergency department secondary to right testicular pain that began the morning of 05/27/2024. The pain was reportedly primarily in his right testicle but the patient did report some lower abdominal pain. When the pain began he had significant nausea and vomiting and he also felt fevers. He notes that his bowels is not moving approximately 2 and half days and he has not been passing any flatus since his symptoms began. He denies any difficulty with urinating. Initially there is concern the patient may have had a testicular torsion as a testicular ultrasound showed a large right hydrocele as well as some decreased blood flow to the right testicle. The ultrasound was reviewed with attending urologist and was felt that due to the presence of a hernia that this was the primary problem. Due to the symptomatology the patient was experiencingnausea and vomiting, inability to pass flatus or move bowels was felt that a CT scan of the abdomen pelvis was warranted. CT scan of the abdomen pelvis was performed. This showed the patient had a small intestinal obstruction due to incarcerated right inguinal hernia. Patient was also noted to have a right sided hydrocele and some mild ascites in the lower abdomen/pelvis. Labs included CBC white blood cell count was elevated 19.8. Hemoglobin and hematocrit as well as a platelet count were normal. Chemistry profile showed sodium was 134 with a potassium of 4.4. BUN and creatinine were both within normal range. LFTs were not elevated and a lactic acid level is normal. The patient denies any medical problems The patient denies any previous surgical procedures The patient notes he does not smoke Concerning family history there are no chronic health conditions that run in his family. Principal Diagnosis Incarcerated Right Inguinal Hernia causing a Small Bowel Obstruction Discharge Exam Constitutional cooperative and comfortable; no acute distress Respiratory normal respiratory effort Cardiovascular Rate/Rhythm: regular rate Gastrointestinal (Abdomen) Inspection/Auscultation: abdomen not distended Neurologic moves all extremities Psychiatric A+Ox3, euthymic affect Discharge Data Allergies Allergy/AdvReac Type Severity Reaction Status Date / Time No Known Allergies Allergy Unverified 05/29/24 02:58 Consultations 05/29/24 02:46 ED Decision to Admit Stat Procedures Performed Operation Date: 05/29/24 04:00 Actual Procedures p Incarcerated Right Inguinal Hernia Repair with Mesh(Right) - Christopher Michaud, Ordered Studies 05/28/24 21:33 US Testicles [US scrotum/testicle] Stat 05/28/24 23:34 CT abd pelvis oral and IV con Stat Hospital Course (1) S/P inguinal hernia repair: This is a 18 yo male who presented to the [facility] ED on 05/28/24 with abdominal pain. Workup in the ED showed a WBC of [address] a/p concerning for Small intestinal obstruction due to an incarcerated hernia at right inguinal region. He also underwent a testicular U/S and urology was consulted and reviewed U/S however felt symptoms were related to the incarcerated hernia and deferred surgical intervention to general surgery (see HPI for full details). Patient made NPO with IVF and booked for the OR. On 05/29/24 the patient went to the OR with Dr Michaud for a urgent Open Incarcerated Right Inguinal Hernia Repair with Mesh, Release of Small Bowel Obstruction . The patient tolerated the procedure well, see operative report for full details. Post operatively the patient's diet was advanced, pain managed on prn meds, and incisions clean/dry/intact. The patient was deemed stable for discharge to home the afternoon of 05/29/24. The patient was given discharge instructions, follow up recommendations, return precautions and a prescription for narcotic pain medication. Total Time Total Time Spent Total Time Spent (In Minutes): 10 Discharge Plan Discharge Items Patient Disposition: Home - Self-Care Reason For Visit: SBO / HERNIA Discharge Diagnosis: Incarcerated Right Inguinal Hernia Repair with Mesh Activity: As commented below Lifting: No more than 10 pounds Bathing Comment: you can shower. No soaking in pools/bath for 2 weeks Exercise/Sports: Wait until after follow-up appointment Driving/Machine Use: no driving if taking narcotic pain medication Non-emergency contact: Surgeon Call non-emergency contact if: you have any medication questions, your symptoms worsen, your temperature is above 101.5, your wound has increased redness, your wound has increased drainage and your wound pain has increased Follow-up/Referrals: Christopher Michaud DO [Physician] - (call office for follow up in 1-2 weeks ) PCP,NO [Primary Care Provider] - Diet: Regular Addtl Attending Provider Instructions: You may remove your outer surgical dressing on 06/01/24. You will have small white bandages on underneath that are over your incision. You may shower with these on. They will tend to fall off on their own in a 7-10 days. You may purchase Tylenol and or Ibuprofen over the counter if needed for addition pain control over the next few days. Take per manufacturers instructions, Do not take more than 3 grams of Tylenol in 24 hours. Pending Studies at Discharge: No Stand-Alone Forms: [facility] [place], Smoking Cessation Medications and DC Order Prescriptions: New oxycodone 5 mg tablet 5 - 10 mg PO .[id number] MDD no more than 6 tabs in 24hours PRN (Reason: pain) Qty: 15 0RF Discharge Orders: Discharge Order (Routine); Ordered 05/29/24 Ordered By: Cielo Terrazas Admission Data Admit Date/Time: 05/29/24 05:31 Attending Provider: Christopher Michaud Admit Provider: Christopher Michaud Primary Care Provider: PCP,NO Other Providers: Christopher Michaud Other Interventions: Discharge Summary Assessment (RN) Last Done: 05/29/24 14:40 Coding Level of Care Code 42177 IN/OBS DISCH 30 MIN/LESS Diagnoses S/P inguinal hernia repair Z98.890; Z87.19
[2024-05-30 12:03] LABS: Chlam trach RNA(Genit,Ureth,Ur Not Detected (NotDetected); GC(Neis gon)RNA(Genit,Ureth,Ur Not Detected (NotDetected)
== END 2024-05-29 15:35 | disposition home or self-care (01) | DRG 352 ==
LOC: ED 21:19 → OR 05-29 03:20 → 3W 05-29 05:31
DX: K40.30 Unilateral inguinal hernia, with obstruction, without gangrene, not specified as recurrent